=== PATIENT | male | born 1935 | race Asian ===

== ENCOUNTER 2018-01-08 21:48 | Inpatient (IN) | payer MEDICARE, MEDICAID ==
[~2018-01-08] VITALS: Ht 160 cm; Wt 51.7 kg
[~2018-01-08 21:48] MED LIST: ALLO100T30 PO; ASPI-515 PO; ATOR20TA9 PO; DOCU-131 PO; HYDR500C3 PO; LOSA25TA2 PO; METO25TA35 PO; OXYC-302 PO; POLY17PO3 PO; SEVE800T8 PO
[2018-01-08] MEDS ORDERED: MORPHINE SULFATE 4 MG/ML, 1ML IVPush PRN (23:00)
[2018-01-08] MEDS ORDERED: CLINDAMYCIN PMX 600MG/50ML 50 ML IV ONE (23:00)
[2018-01-08] MEDS ORDERED: MORPHINE SULFATE 4 MG/ML, 1ML ONE (23:14)
[2018-01-08] MEDS ORDERED: CLINDAMYCIN PMX 600MG/50ML 50 ML ONE (23:15)
[2018-01-08 23:24] LABS: MEAN CORPUSCULAR HEMOGLOBIN 38.9 pg (27.5-34.5); MEAN CORPUSCULAR HGB CONC 33.1 g/dL (33.2-36.2); MEAN CORPUSCULAR VOLUME 117.5 fL (81-97); MEAN PLATELET VOLUME 7.2 fL (7.4-10.4); PLATELET COUNT 887 x10^3/uL (130-400); RED BLOOD COUNT 2.13 x10^6/uL (4.38-5.82)
[2018-01-08 23:28] LABS: HCT (SEDRATE) 25.1 % (39.2-51.8)
[2018-01-08 23:33] LABS: ALANINE AMINOTRANSFERASE 11 U/L (12-78); ALBUMIN 2.4 g/dL (3.4-5.0); ANION GAP 1 mmol/L (5-15); CALCIUM 8.5 mg/dL (8.5-10.1); CHLORIDE 101 mmol/L (98-107)
[2018-01-08 23:35] LABS: ALKALINE PHOSPHATASE 107 U/L (45-117); BILIRUBIN,TOTAL 0.4 mg/dL (0.2-1.0); TOTAL PROTEIN 7.3 g/dL (6.4-8.2)
[2018-01-09 00:29] LABS: BASOPHILS % (AUTO) 1 % (0-1); EOSINOPHILS # (AUTO) 0.23 x10^3/uL (0-0.4); EOSINOPHILS % (AUTO) 2 % (1-7); LYMPHOCYTES # (AUTO) 1.07 x10^3/uL (1-3.4); LYMPHOCYTES % (AUTO) 8 % (22-44); MD SCAN; MONOCYTES # (AUTO) 1.04 x10^3/uL (0.2-0.8); MONOCYTES % (AUTO) 8 % (2-9); NEUTROPHILS # (AUTO) 10.56 x10^3/uL (1.8-6.8); NEUTROPHILS % (AUTO) 81 % (42-75)
[2018-01-09] MEDS ORDERED: HYDR-3240 PO (00:39)
[2018-01-09] MEDS ORDERED: SULF1TAB24 PO (00:39)
[2018-01-09] MEDS ORDERED: GABA-826 PO (00:39)
[2018-01-09] MEDS ORDERED: LEVO100T5 PO (00:39)
[2018-01-09] MEDS ORDERED: PHARMACOKINETIC CONSULTATION MC ONE (04:30)
[2018-01-09] MEDS ORDERED: VANCOMYCIN PER PHARMACY MC PRN (04:30)
[2018-01-09] MEDS ORDERED: BISACODYL 10 MG SUPP PR PRN (04:30)
[2018-01-09] MEDS ORDERED: ONDANSETRON ODT 4 MG PO PRN (04:30)
[2018-01-09] MEDS ORDERED: hydrALAzine 20 MG/ML, 1ML IVPush PRN (04:30)
[2018-01-09] MEDS ORDERED: PHARMACOKINETIC MONITORING MC PRN (04:30)
[2018-01-09] MEDS ORDERED: VANCOMYCIN PMX 1GM/200ML 200 ML IV ONE (04:30)
[2018-01-09] MEDS ORDERED: OXYcodone/APAP 5/325MG TABLET PO PRN (04:30)
[2018-01-09] MEDS: HEPARIN 5,000 UNITS/ML, 1ML SQ SCH ×3 (05:21→20:46)
[2018-01-09] MEDS: LEVOTHYROXINE 100 MCG TABLET PO SCH (05:22)
[2018-01-09 07:17] VITALS: BP 119/51
[2018-01-09] MEDS: HYDROcodone/APAP 5/325 TABLET PO SCH ×2 (08:31→20:46)
[2018-01-09] MEDS: ALLOPURINOL 100 MG TABLET PO SCH (08:31)
[2018-01-09] MEDS: GABAPENTIN 100 MG CAPSULE PO SCH (08:31)
[2018-01-09] MEDS: ASPIRIN 81 MG TABLET EC PO SCH (08:31)
[2018-01-09] MEDS: DOCUSATE 100 MG CAPSULE PO SCH ×2 (08:31→20:46)
[2018-01-09] MEDS: HYDROXYUREA 500 MG CAPSULE PO SCH (08:32)
[2018-01-09] MEDS: SEVELAMER CARBONATE 800MG TAB PO SCH ×4 (08:36→20:46)
[2018-01-09] MEDS ORDERED: GABAPENTIN 100 MG CAPSULE PO SCH (09:00)
[2018-01-09] MEDS ORDERED: METOPROLOL TARTRATE 25 MG TABLET PO SCH (09:00)
[2018-01-09] MEDS: LOSARTAN 25MG TABLET PO SCH (09:00)
[2018-01-09] MEDS ORDERED: PIPERACILLIN/TAZO 0.75 GM in SODIUM CHLORIDE 0.9% 50 ML IV SCH (09:00)
[2018-01-09] MEDS: PIPERACILLIN/TAZO 2.25 GM in SODIUM CHLORIDE 0.9% 50 ML IV SCH ×2 (10:00→20:46)
[2018-01-09 12:58] VITALS: BP 125/80
[2018-01-09 17:53] VITALS: BP 118/64
[2018-01-09] MEDS: CARVEDILOL 6.25 MG TABLET PO SCH (17:54)
[2018-01-09 20:10] VITALS: BP 114/68
[2018-01-09] MEDS: ATORVASTATIN 20 MG TABLET PO SCH (20:46)
[2018-01-10 03:50] VITALS: BP 126/59
[2018-01-10] MEDS: HEPARIN 5,000 UNITS/ML, 1ML SQ SCH ×3 (04:16→20:30)
[2018-01-10 05:39] LABS: MEAN CORPUSCULAR HEMOGLOBIN 38.3 pg (27.5-34.5); MEAN CORPUSCULAR HGB CONC 32.5 g/dL (33.2-36.2); MEAN CORPUSCULAR VOLUME 117.7 fL (81-97); MEAN PLATELET VOLUME 7.3 fL (7.4-10.4); PLATELET COUNT 731 x10^3/uL (130-400); RED BLOOD COUNT 1.82 x10^6/uL (4.38-5.82); RED CELL DISTRIBUTION WIDTH 16.8 % (9.4-14.8)
[2018-01-10] MEDS: CARVEDILOL 6.25 MG TABLET PO SCH ×2 (05:39→22:10)
[2018-01-10] MEDS: LEVOTHYROXINE 100 MCG TABLET PO SCH (05:39)
[2018-01-10 05:51] LABS: ALBUMIN 2.1 g/dL (3.4-5.0); ANION GAP 7 mmol/L (5-15); CALCIUM 8.1 mg/dL (8.5-10.1); CHLORIDE 99 mmol/L (98-107)
[2018-01-10 06:00] LABS: BASOPHILS # (AUTO) 0.04 x10^3/uL (0-0.1); BASOPHILS % (AUTO) 0 % (0-1); EOSINOPHILS # (AUTO) 0.46 x10^3/uL (0-0.4); EOSINOPHILS % (AUTO) 4 % (1-7); LYMPHOCYTES # (AUTO) 0.99 x10^3/uL (1-3.4); LYMPHOCYTES % (AUTO) 8 % (22-44); MD SCAN; MONOCYTES # (AUTO) 0.98 x10^3/uL (0.2-0.8); MONOCYTES % (AUTO) 8 % (2-9); NEUTROPHILS # (AUTO) 9.39 x10^3/uL (1.8-6.8); NEUTROPHILS % (AUTO) 79 % (42-75)
[2018-01-10 06:08] LABS: INTERNATIONAL NORMALIZED RATIO 1.14 (0.93-1.1); PROTHROMBIN TIME 11.8 Seconds (9.6-11.5)
[2018-01-10 06:54] LABS: % IRON SATURATION 20 % (20-55); ALANINE AMINOTRANSFERASE 10 U/L (12-78); ALKALINE PHOSPHATASE 85 U/L (45-117); BILIRUBIN,TOTAL 0.3 mg/dL (0.2-1.0); IRON LEVEL 31 mcg/dL (65-175); TOTAL IRON BINDING CAPACITY 152 mcg/dL (250-450); TOTAL PROTEIN 6.1 g/dL (6.4-8.2)
[2018-01-10 07:13] LABS: VANCOMYCIN,RANDOM 17.5 mcg/mL
[2018-01-10 07:23] VITALS: BP 133/53
[2018-01-10] MEDS: SEVELAMER CARBONATE 800MG TAB PO SCH (09:00)
[2018-01-10] MEDS: PIPERACILLIN/TAZO/PMX 2.25GM 50 ML IV SCH ×2 (09:00→22:11)
[2018-01-10] MEDS: ASPIRIN 81 MG TABLET EC PO SCH (09:05)
[2018-01-10] MEDS: GABAPENTIN 100 MG CAPSULE PO SCH (09:05)
[2018-01-10] MEDS: ALLOPURINOL 100 MG TABLET PO SCH (09:05)
[2018-01-10] MEDS: HYDROcodone/APAP 5/325 TABLET PO SCH ×3 (09:06→22:10)
[2018-01-10] MEDS: DOCUSATE 100 MG CAPSULE PO SCH ×3 (09:06→22:11)
[2018-01-10] MEDS: LOSARTAN 25MG TABLET PO SCH (09:06)
[2018-01-10] MEDS: HYDROXYUREA 500 MG CAPSULE PO SCH (09:09)
[2018-01-10] MEDS ORDERED: ARANESP 40 MCG/ML **ESRD SQ SCH (09:30)
[2018-01-10] MEDS: VANCOMYCIN PMX 1GM/200ML 200 ML IVPB SCH (12:39)
[2018-01-10 12:52] VITALS: BP 134/56
[2018-01-10] MEDS ORDERED: FENTANYL PF 250 MCG/5ML ONE (15:25)
[2018-01-10] MEDS ORDERED: ONDANSETRON 2MG/ML, 2ML ONE (15:51)
[2018-01-10] MEDS ORDERED: DEXAMETHASONE 4 MG/ML, 5ML ONE (15:51)
[2018-01-10] MEDS ORDERED: CEFAZOLIN 1,000 MG ONE (15:51)
[2018-01-10] MEDS ORDERED: EPHEDRINE 50 MG/ML, 1ML IVPush PRN (16:30)
[2018-01-10] MEDS ORDERED: OXYcodone 5 MG/5 ML ORAL.SOL UDC PO PRN (16:30)
[2018-01-10] MEDS ORDERED: LABETALOL 5MG/ML, 20ML IV PRN (16:30)
[2018-01-10] MEDS ORDERED: MEPERIDINE/PF 25MG/0.5ML IVPush PRN (16:30)
[2018-01-10] MEDS ORDERED: hydrALAzine 20 MG/ML, 1ML IV PRN (16:30)
[2018-01-10] MEDS ORDERED: PROMETHAZINE 25 MG/ML, 1ML IV PRN (16:30)
[2018-01-10] MEDS ORDERED: ONDANSETRON ODT 8 MG PO PRN (16:30)
[2018-01-10] MEDS ORDERED: ONDANSETRON 2MG/ML, 2ML IV PRN (16:30)
[2018-01-10] MEDS ORDERED: MIDAZOLAM 1 MG/ML, 2ML IV PRN (16:30)
[2018-01-10] MEDS ORDERED: MORPHINE SULFATE 4 MG/ML, 1ML IVPush PRN (16:30)
[2018-01-10] MEDS ORDERED: LORazepam 2 MG/ML, 1ML IVPush PRN (16:30)
[2018-01-10] MEDS ORDERED: HYDROmorphone 1 MG/ML, 1ML IV PRN (16:30)
[2018-01-10] MEDS ORDERED: ACETAMINOPHEN 325 MG TABLET PO PRN (16:30)
[2018-01-10] MEDS ORDERED: PROMETHAZINE 12.5 MG SUPP PR PRN (16:30)
[2018-01-10] MEDS ORDERED: ALBUTEROL SULFATE 2.5 MG/3 ML NPPB PRN (16:30)
[2018-01-10] MEDS ORDERED: NALOXONE 0.4 MG/ML, 1ML ONE (16:31)
[2018-01-10] MEDS ORDERED: PROPOFOL 10 MG/ML, 20ML ONE (16:33)
[2018-01-10] MEDS ORDERED: FENTANYL PF 100 MCG/2ML ONE (16:58)
[2018-01-10] MEDS ORDERED: OXYcodone 5 MG/5 ML ORAL.SOL UDC ONE (16:58)
[2018-01-10] MEDS: FENTANYL PF 100 MCG/2ML IV PRN ×4 (17:06→17:55)
[2018-01-10 20:38] VITALS: BP 146/63
[2018-01-10] MEDS: ATORVASTATIN 20 MG TABLET PO SCH ×2 (21:00→22:11)
[2018-01-10] MEDS: SULFAMETH./TRIMETHOPRIM DS 800MG/160MG TABLET PO SCH (22:10)
[2018-01-10] MEDS: POLYETHYLENE GLYCOL 17 GM PACKET PO SCH (22:11)
[2018-01-11] VITALS: BP 171/72
[2018-01-11 03:42] VITALS: BP 160/49
[2018-01-11] MEDS: HEPARIN 5,000 UNITS/ML, 1ML SQ SCH ×4 (03:53→21:08)
[2018-01-11 05:49] LABS: MEAN CORPUSCULAR HEMOGLOBIN 37.3 pg (27.5-34.5); MEAN CORPUSCULAR HGB CONC 33.7 g/dL (33.2-36.2); MEAN CORPUSCULAR VOLUME 110.6 fL (81-97); MEAN PLATELET VOLUME 7.6 fL (7.4-10.4); PLATELET COUNT 725 x10^3/uL (130-400); RED BLOOD COUNT 2.62 x10^6/uL (4.38-5.82); RED CELL DISTRIBUTION WIDTH 24.3 % (9.4-14.8)
[2018-01-11 05:53] LABS: CHLORIDE 101 mmol/L (98-107)
[2018-01-11] MEDS: CARVEDILOL 6.25 MG TABLET PO SCH ×2 (05:55→19:22)
[2018-01-11] MEDS: LEVOTHYROXINE 100 MCG TABLET PO SCH (05:55)
[2018-01-11] MEDS ORDERED: METOPROLOL TARTRATE 25 MG TABLET PO SCH (06:00)
[2018-01-11] MEDS ORDERED: LEVOTHYROXINE 100 MCG TABLET PO SCH (06:00)
[2018-01-11 06:01] LABS: ALANINE AMINOTRANSFERASE 8 U/L (12-78); ALBUMIN 2.3 g/dL (3.4-5.0); ALKALINE PHOSPHATASE 109 U/L (45-117); ANION GAP 10 mmol/L (5-15); BILIRUBIN,TOTAL 0.5 mg/dL (0.2-1.0); CALCIUM 8.3 mg/dL (8.5-10.1); CREATININE 5.29 mg/dL (0.7-1.3); TOTAL PROTEIN 7.2 g/dL (6.4-8.2)
[2018-01-11 06:46] LABS: BASOPHILS % (AUTO) 0 % (0-1); EOSINOPHILS % (AUTO) 0 % (1-7); LYMPHOCYTES % (AUTO) 4 % (22-44); MD SCAN; MONOCYTES # (AUTO) 0.28 x10^3/uL (0.2-0.8); MONOCYTES % (AUTO) 2 % (2-9); NEUTROPHILS # (AUTO) 14.12 x10^3/uL (1.8-6.8); NEUTROPHILS % (AUTO) 94 % (42-75)
[2018-01-11 07:03] VITALS: BP 161/62
[2018-01-11] MEDS ORDERED: SEVELAMER CARBONATE 800MG TAB PO SCH (08:00)
[2018-01-11] MEDS: PIPERACILLIN/TAZO/PMX 2.25GM 50 ML IV SCH ×3 (08:46→21:03)
[2018-01-11] MEDS: SULFAMETH./TRIMETHOPRIM DS 800MG/160MG TABLET PO SCH (08:46)
[2018-01-11] MEDS: GABAPENTIN 100 MG CAPSULE PO SCH (08:46)
[2018-01-11] MEDS: ASPIRIN 81 MG TABLET CHEW PO SCH (08:46)
[2018-01-11] MEDS: DOCUSATE 100 MG CAPSULE PO SCH ×2 (08:46→21:02)
[2018-01-11] MEDS: HYDROcodone/APAP 5/325 TABLET PO SCH ×2 (08:47→21:02)
[2018-01-11] MEDS: HYDROXYUREA 500 MG CAPSULE PO SCH (09:00)
[2018-01-11] MEDS ORDERED: ALLOPURINOL 100 MG TABLET PO SCH (09:00)
[2018-01-11] MEDS: LOSARTAN 25MG TABLET PO SCH (09:27)
[2018-01-11 12:34] VITALS: BP 169/62
[2018-01-11 19:15] VITALS: BP 143/56
[2018-01-11] MEDS: ATORVASTATIN 20 MG TABLET PO SCH (21:02)
[2018-01-11] MEDS: POLYETHYLENE GLYCOL 17 GM PACKET PO SCH (21:02)
[2018-01-12 01:41] VITALS: BP 156/59
[2018-01-12] MEDS: HEPARIN 5,000 UNITS/ML, 1ML SQ SCH ×3 (04:32→20:19)
[2018-01-12 05:26] LABS: ALBUMIN 2.1 g/dL (3.4-5.0); ANION GAP 5 mmol/L (5-15); CALCIUM 8.3 mg/dL (8.5-10.1); CHLORIDE 107 mmol/L (98-107)
[2018-01-12 05:32] LABS: ALKALINE PHOSPHATASE 91 U/L (45-117); BILIRUBIN,TOTAL 0.5 mg/dL (0.2-1.0); CREATININE 2.78 mg/dL (0.7-1.3); TOTAL PROTEIN 6.9 g/dL (6.4-8.2); VANCOMYCIN,RANDOM 21.8 mcg/mL
[2018-01-12 05:33] LABS: ALANINE AMINOTRANSFERASE < 6 U/L (12-78)
[2018-01-12] MEDS: CARVEDILOL 6.25 MG TABLET PO SCH ×3 (06:18→18:00)
[2018-01-12] MEDS: LEVOTHYROXINE 100 MCG TABLET PO SCH ×2 (06:18→06:20)
[2018-01-12 07:10] VITALS: BP 153/77
[2018-01-12] MEDS: HYDROcodone/APAP 5/325 TABLET PO SCH ×2 (08:56→20:19)
[2018-01-12] MEDS: DOCUSATE 100 MG CAPSULE PO SCH ×2 (08:56→20:19)
[2018-01-12] MEDS: LOSARTAN 25MG TABLET PO SCH (08:56)
[2018-01-12] MEDS: GABAPENTIN 100 MG CAPSULE PO SCH (08:56)
[2018-01-12] MEDS: ASPIRIN 81 MG TABLET CHEW PO SCH (08:56)
[2018-01-12] MEDS: PIPERACILLIN/TAZO/PMX 2.25GM 50 ML IV SCH ×2 (08:57→21:03)
[2018-01-12] MEDS: SULFAMETH./TRIMETHOPRIM DS 800MG/160MG TABLET PO SCH (08:58)
[2018-01-12] MEDS: HYDROXYUREA 500 MG CAPSULE PO SCH (08:59)
[2018-01-12] MEDS: VANCOMYCIN PMX 1GM/200ML 200 ML IVPB SCH (11:17)
[2018-01-12 14:00] VITALS: BP 159/65
[2018-01-12] MEDS: POLYETHYLENE GLYCOL 17 GM PACKET PO SCH (20:18)
[2018-01-12] MEDS: ATORVASTATIN 20 MG TABLET PO SCH (20:19)
[2018-01-12 20:22] VITALS: BP 151/66
[2018-01-13 04:23] VITALS: BP 145/60
[2018-01-13] MEDS: HEPARIN 5,000 UNITS/ML, 1ML SQ SCH ×3 (04:44→20:39)
[2018-01-13 05:41] LABS: MEAN CORPUSCULAR HEMOGLOBIN 36.3 pg (27.5-34.5); MEAN PLATELET VOLUME 7.6 fL (7.4-10.4); PLATELET COUNT 710 x10^3/uL (130-400); RED BLOOD COUNT 2.61 x10^6/uL (4.38-5.82); RED CELL DISTRIBUTION WIDTH 23.3 % (9.4-14.8)
[2018-01-13 05:51] LABS: ALBUMIN 2.1 g/dL (3.4-5.0); ANION GAP 9 mmol/L (5-15); CALCIUM 8.3 mg/dL (8.5-10.1); CHLORIDE 107 mmol/L (98-107)
[2018-01-13] MEDS: CARVEDILOL 6.25 MG TABLET PO SCH ×2 (05:51→18:27)
[2018-01-13] MEDS: LEVOTHYROXINE 100 MCG TABLET PO SCH (05:51)
[2018-01-13 05:55] LABS: CREATININE 4.23 mg/dL (0.7-1.3); VANCOMYCIN,RANDOM 35.7 mcg/mL
[2018-01-13 06:14] LABS: BASOPHILS # (AUTO) 0.05 x10^3/uL (0-0.1); BASOPHILS % (AUTO) 0 % (0-1); EOSINOPHILS # (AUTO) 0.29 x10^3/uL (0-0.4); EOSINOPHILS % (AUTO) 2 % (1-7); LYMPHOCYTES # (AUTO) 0.84 x10^3/uL (1-3.4); LYMPHOCYTES % (AUTO) 6 % (22-44); MD SCAN; MONOCYTES # (AUTO) 1.09 x10^3/uL (0.2-0.8); MONOCYTES % (AUTO) 7 % (2-9); NEUTROPHILS # (AUTO) 12.73 x10^3/uL (1.8-6.8); NEUTROPHILS % (AUTO) 85 % (42-75)
[2018-01-13 07:11] VITALS: BP 139/52
[2018-01-13] MEDS: PIPERACILLIN/TAZO/PMX 2.25GM 50 ML IV SCH ×2 (12:32→20:42)
[2018-01-13] MEDS: GABAPENTIN 100 MG CAPSULE PO SCH (12:32)
[2018-01-13] MEDS: DOCUSATE 100 MG CAPSULE PO SCH ×2 (12:32→20:39)
[2018-01-13] MEDS: HYDROcodone/APAP 5/325 TABLET PO SCH ×2 (12:32→20:39)
[2018-01-13] MEDS: ASPIRIN 81 MG TABLET CHEW PO SCH (12:32)
[2018-01-13] MEDS: LOSARTAN 25MG TABLET PO SCH (12:32)
[2018-01-13] MEDS: SULFAMETH./TRIMETHOPRIM DS 800MG/160MG TABLET PO SCH (12:32)
[2018-01-13] MEDS: HYDROXYUREA 500 MG CAPSULE PO SCH (12:33)
[2018-01-13 12:49] VITALS: BP 134/49
[2018-01-13 17:40] VITALS: BP 119/63
[2018-01-13 19:34] VITALS: BP 120/56
[2018-01-13] MEDS: POLYETHYLENE GLYCOL 17 GM PACKET PO SCH (20:39)
[2018-01-13] MEDS: ATORVASTATIN 20 MG TABLET PO SCH (20:39)
[2018-01-14 02:20] VITALS: BP 135/55
[2018-01-14] MEDS: HEPARIN 5,000 UNITS/ML, 1ML SQ SCH ×4 (04:30→20:36)
[2018-01-14] MEDS: LEVOTHYROXINE 100 MCG TABLET PO SCH ×2 (04:52→05:00)
[2018-01-14] MEDS: CARVEDILOL 6.25 MG TABLET PO SCH ×3 (04:52→17:23)
[2018-01-14] MEDS: HYDROcodone/APAP 5/325 TABLET PO SCH ×2 (09:09→20:36)
[2018-01-14] MEDS: ASPIRIN 81 MG TABLET CHEW PO SCH (09:09)
[2018-01-14] MEDS: PIPERACILLIN/TAZO/PMX 2.25GM 50 ML IV SCH ×2 (09:09→20:35)
[2018-01-14] MEDS: LOSARTAN 25MG TABLET PO SCH (09:09)
[2018-01-14] MEDS: HYDROXYUREA 500 MG CAPSULE PO SCH (09:10)
[2018-01-14] MEDS: GABAPENTIN 100 MG CAPSULE PO SCH (09:10)
[2018-01-14 09:26] VITALS: BP 144/71
[2018-01-14] MEDS: DOCUSATE 100 MG CAPSULE PO SCH ×2 (09:28→20:36)
[2018-01-14] MEDS: SULFAMETH./TRIMETHOPRIM DS 800MG/160MG TABLET PO SCH (11:41)
[2018-01-14] MEDS: OXYcodone/APAP 5/325MG TABLET PO PRN (11:52)
[2018-01-14 14:00] VITALS: BP 104/59
[2018-01-14 17:20] VITALS: BP 139/60
[2018-01-14 20:10] VITALS: BP 132/52
[2018-01-14] MEDS: POLYETHYLENE GLYCOL 17 GM PACKET PO SCH (20:36)
[2018-01-14] MEDS: ATORVASTATIN 20 MG TABLET PO SCH (20:36)
[2018-01-15 02:14] VITALS: BP 143/61
[2018-01-15] MEDS: HEPARIN 5,000 UNITS/ML, 1ML SQ SCH ×2 (04:52→12:51)
[2018-01-15] MEDS: LEVOTHYROXINE 100 MCG TABLET PO SCH (04:52)
[2018-01-15] MEDS: CARVEDILOL 6.25 MG TABLET PO SCH (04:53)
[2018-01-15 05:01] LABS: MEAN CORPUSCULAR HEMOGLOBIN 36.6 pg (27.5-34.5); MEAN CORPUSCULAR HGB CONC 33.1 g/dL (33.2-36.2); MEAN CORPUSCULAR VOLUME 110.4 fL (81-97); MEAN PLATELET VOLUME 7.5 fL (7.4-10.4); PLATELET COUNT 719 x10^3/uL (130-400); RED BLOOD COUNT 2.62 x10^6/uL (4.38-5.82); RED CELL DISTRIBUTION WIDTH 22.8 % (9.4-14.8)
[2018-01-15 05:05] LABS: ALBUMIN 2.1 g/dL (3.4-5.0); ANION GAP 9 mmol/L (5-15); CALCIUM 8.3 mg/dL (8.5-10.1); CHLORIDE 109 mmol/L (98-107); CREATININE 4.34 mg/dL (0.7-1.3)
[2018-01-15 05:07] LABS: VANCOMYCIN,RANDOM 27.3 mcg/mL
[2018-01-15 05:44] LABS: MD YES
[2018-01-15 05:46] LABS: BASOS#(MANUAL) 0.12 x10^3/uL (0-0.1); BASOS% (MANUAL) 1 % (0-1); EOS#(MANUAL) 0.23 x10^3/uL (0.0-0.4); EOS% (MANUAL) 2 % (1-7); LYMPH#(MANUAL) 0.93 x10^3/uL (1-3.4); LYMPHS% (MANUAL) 8 % (22-44); MONOS#(MANUAL) 0.93 x10^3/uL (0.3-2.7); MONOS% (MANUAL) 8 % (2-9); NRBC % (MANUAL) 1 % (0-1); SEGS% (MANUAL) 81 % (42-75)
[2018-01-15 05:47] LABS: POLYCHROMASIA 1+
[2018-01-15 05:48] LABS: <PLATELET ESTIMATE> INCREASED; <PLT MORPHOLOGY> NORMAL PLT MORPH
[2018-01-15] MEDS: HYDROcodone/APAP 5/325 TABLET PO SCH (07:23)
[2018-01-15 07:30] VITALS: BP 162/69
[2018-01-15] MEDS: DOCUSATE 100 MG CAPSULE PO SCH (09:00)
[2018-01-15] MEDS ORDERED: CEPH-368 PO (10:17)
[2018-01-15] MEDS ORDERED: CARV6.2512 PO (10:17)
[2018-01-15] MEDS ORDERED: ACET-1600 PO (10:29)
[2018-01-15] MEDS: PIPERACILLIN/TAZO/PMX 2.25GM 50 ML IV SCH (12:46)
[2018-01-15] MEDS: GABAPENTIN 100 MG CAPSULE PO SCH (12:47)
[2018-01-15] MEDS: SULFAMETH./TRIMETHOPRIM DS 800MG/160MG TABLET PO SCH (12:47)
[2018-01-15] MEDS: ASPIRIN 81 MG TABLET CHEW PO SCH (12:48)
[2018-01-15] MEDS: LOSARTAN 25MG TABLET PO SCH (12:49)
[2018-01-15] MEDS: HYDROXYUREA 500 MG CAPSULE PO SCH (12:50)
[2018-01-15 12:58] VITALS: BP 143/57
[2018-01-15] MEDS: OXYcodone/APAP 5/325MG TABLET PO PRN (13:07)
== END 2018-01-15 16:37 | DRG 474 ==
LOC: ED 22:22 → EDIP 01-09 00:44 → 4NOR 01-09 02:10
PROVIDERS: ADMIT Family Medicine; ATTEND Family Medicine
PROC: 30233N1 Transfusion of Nonautologous Red Blood Cells into Peripheral Vein, Percutaneous Approach (ICD-10-PCS; 2018-01-10)
PROC: 0Y6D0Z3 Detachment at Left Upper Leg, Low, Open Approach (ICD-10-PCS; principal; 2018-01-10 14:30)
PROC: 5A1D70Z Performance of Urinary Filtration, Intermittent, Less than 6 Hours Per Day (ICD-10-PCS; 2018-01-11)
PROC: 5A1D70Z Performance of Urinary Filtration, Intermittent, Less than 6 Hours Per Day (ICD-10-PCS; 2018-01-13)
PROC: 5A1D70Z Performance of Urinary Filtration, Intermittent, Less than 6 Hours Per Day (ICD-10-PCS; 2018-01-15)
DX: T87.54 Necrosis of amputation stump, left lower extremity (principal); N18.6 End stage renal disease; E11.52 Type 2 diabetes mellitus with diabetic peripheral angiopathy with gangrene; E46 Unspecified protein-calorie malnutrition; J81.1 Chronic pulmonary edema; J90 Pleural effusion, not elsewhere classified; L03.116 Cellulitis of left lower limb; I12.0 Hypertensive chronic kidney disease with stage 5 chronic kidney disease or end stage renal disease; D63.1 Anemia in chronic kidney disease; E03.9 Hypothyroidism, unspecified; E11.22 Type 2 diabetes mellitus with diabetic chronic kidney disease; E11.65 Type 2 diabetes mellitus with hyperglycemia; E78.5 Hyperlipidemia, unspecified; E87.6 Hypokalemia; E87.70 Fluid overload, unspecified; M1A.9XX0 Chronic gout, unspecified, without tophus (tophi); N25.0 Renal osteodystrophy; Z60.2 Problems related to living alone; R79.89 Other specified abnormal findings of blood chemistry; Y83.5 Amputation of limb(s) as the cause of abnormal reaction of the patient, or of later complication, without mention of misadventure at the time of the procedure; Z99.2 Dependence on renal dialysis; Z82.49 Family history of ischemic heart disease and other diseases of the circulatory system; Z83.3 Family history of diabetes mellitus; Z68.20 Body mass index [BMI] 20.0-20.9, adult; Z86.73 Personal history of transient ischemic attack (TIA), and cerebral infarction without residual deficits; Z87.891 Personal history of nicotine dependence; Z95.828 Presence of other vascular implants and grafts; Y92.89 Other specified places as the place of occurrence of the external cause; Z79.84 Long term (current) use of oral hypoglycemic drugs
CPT/HCPCS: 36415; 71045; 80053; 80069; 80202; 82306; 82728; 82962; 83540; 83550; 83605; 83735; 83970; 84100; 84550; 85025; 85610; 85651; 85730; 86705; 86706; 86850; 86900; 86923; 87040; 87340; 93005; 96365; 96375; G0378; J0690; J0882; J1100; J1644; J2310; J2405; J2543; J2704; J3010; J3370; P9016

== ENCOUNTER 2018-03-17 10:55 | Inpatient (IN) | payer MEDICARE, MEDICAID ==
[~2018-03-17] VITALS: Ht 167.6 cm; Wt 42.6 kg
[~2018-03-17 10:55] MED LIST changes: +ACET-1600 PO; +CARV6.2512 PO; +CEPH-368 PO; +GABA-826 PO; +HYDR-3240 PO; +LEVO100T5 PO; +SULF1TAB24 PO
[2018-03-17] MEDS ORDERED: MUPI1OIN6 TD (11:09)
[2018-03-17] MEDS ORDERED: SODIUM CHLORIDE FLUSH 10ML SYR IVF ONE (12:00)
[2018-03-17 12:24] LABS: BASOPHILS # (AUTO) 0.02 x10^3/uL (0-0.1); BASOPHILS % (AUTO) 0 % (0-1); EOSINOPHILS # (AUTO) 0.05 x10^3/uL (0-0.4); EOSINOPHILS % (AUTO) 0 % (1-7); LYMPHOCYTES % (AUTO) 10 % (22-44); MD NO; MEAN CORPUSCULAR HEMOGLOBIN 34.9 pg (27.5-34.5); MEAN CORPUSCULAR HGB CONC 32.1 g/dL (33.2-36.2); MEAN CORPUSCULAR VOLUME 108.7 fL (81-97); MEAN PLATELET VOLUME 7.2 fL (7.4-10.4); MONOCYTES # (AUTO) 0.62 x10^3/uL (0.2-0.8); MONOCYTES % (AUTO) 6 % (2-9); NEUTROPHILS # (AUTO) 9.34 x10^3/uL (1.8-6.8); NEUTROPHILS % (AUTO) 84 % (42-75); PLATELET COUNT 576 x10^3/uL (130-400); RED BLOOD COUNT 3.42 x10^6/uL (4.38-5.82); RED CELL DISTRIBUTION WIDTH 20.6 % (9.4-14.8)
[2018-03-17 12:34] LABS: ALBUMIN 2.5 g/dL (3.4-5.0); ANION GAP 10 mmol/L (5-15); CALCIUM 9.2 mg/dL (8.5-10.1); CHLORIDE 99 mmol/L (98-107)
[2018-03-17 12:40] LABS: ALANINE AMINOTRANSFERASE 12 U/L (12-78); ALKALINE PHOSPHATASE 93 U/L (45-117); BILIRUBIN,TOTAL 0.4 mg/dL (0.2-1.0); CREATININE 5.21 mg/dL (0.7-1.3); TOTAL PROTEIN 7.5 g/dL (6.4-8.2); TROPONIN I 0.029 ng/mL (0.000-0.045)
[2018-03-17] MEDS ORDERED: LABETALOL 5MG/ML, 20ML IVPush PRN (14:00)
[2018-03-17] MEDS ORDERED: LIDODERM 5% PATCH TD PRN (14:00)
[2018-03-17] MEDS ORDERED: BISACODYL 10 MG SUPP PR PRN (14:00)
[2018-03-17] MEDS ORDERED: ONDANSETRON 2MG/ML, 2ML IVPush PRN (14:00)
[2018-03-17] MEDS ORDERED: SODIUM CHLORIDE FLUSH 10ML SYR IVF PRN (14:00)
[2018-03-17] MEDS ORDERED: DOCUSATE 100 MG CAPSULE PO PRN (14:00)
[2018-03-17] MEDS ORDERED: ONDANSETRON ODT 4 MG PO PRN (14:00)
[2018-03-17] MEDS ORDERED: POLYETHYLENE GLYCOL 17 GM PACKET PO PRN (15:00)
[2018-03-17] MEDS: CARVEDILOL 6.25 MG TABLET PO SCH ×2 (17:45→21:05)
[2018-03-17 20:40] VITALS: BP 120/51
[2018-03-17] MEDS: MUPIROCIN OINT 2%, 22GM TP SCH (21:00)
[2018-03-17] MEDS: ATORVASTATIN 20 MG TABLET PO SCH (21:05)
[2018-03-17] MEDS: DOCUSATE 100 MG CAPSULE PO SCH (21:05)
[2018-03-18 02:30] VITALS: BP 115/54
[2018-03-18 05:27] LABS: BASOPHILS # (AUTO) 0.03 x10^3/uL (0-0.1); BASOPHILS % (AUTO) 0 % (0-1); EOSINOPHILS # (AUTO) 0.05 x10^3/uL (0-0.4); EOSINOPHILS % (AUTO) 1 % (1-7); LYMPHOCYTES # (AUTO) 1.11 x10^3/uL (1-3.4); LYMPHOCYTES % (AUTO) 11 % (22-44); MD NO; MEAN CORPUSCULAR HEMOGLOBIN 34.4 pg (27.5-34.5); MEAN CORPUSCULAR HGB CONC 31.6 g/dL (33.2-36.2); MEAN CORPUSCULAR VOLUME 108.7 fL (81-97); MEAN PLATELET VOLUME 7.1 fL (7.4-10.4); MONOCYTES # (AUTO) 0.68 x10^3/uL (0.2-0.8); MONOCYTES % (AUTO) 7 % (2-9); NEUTROPHILS # (AUTO) 8.44 x10^3/uL (1.8-6.8); NEUTROPHILS % (AUTO) 82 % (42-75); PLATELET COUNT 656 x10^3/uL (130-400)
[2018-03-18 05:39] LABS: CHLORIDE 96 mmol/L (98-107)
[2018-03-18] MEDS: LEVOTHYROXINE 100 MCG TABLET PO SCH (05:59)
[2018-03-18] MEDS: MUPIROCIN OINT 2%, 22GM TP SCH ×2 (06:00→18:00)
[2018-03-18 06:22] LABS: ANION GAP 6 mmol/L (5-15); CREATININE 2.93 mg/dL (0.7-1.3); THYROID STIMULATING HORMONE 0.358 mIU/L (0.358-3.740)
[2018-03-18 07:18] VITALS: BP 125/54
[2018-03-18] MEDS ORDERED: GABAPENTIN 100 MG CAPSULE ONE (08:46)
[2018-03-18] MEDS: SENNA/DOCUSATE TABLET PO SCH (08:47)
[2018-03-18] MEDS: LOSARTAN 25MG TABLET PO SCH (08:55)
[2018-03-18] MEDS: ASPIRIN 81 MG TABLET EC PO SCH (08:55)
[2018-03-18] MEDS: DOCUSATE 100 MG CAPSULE PO SCH ×2 (08:55→20:33)
[2018-03-18] MEDS: GABAPENTIN 100 MG CAPSULE PO SCH (08:55)
[2018-03-18] MEDS: ALLOPURINOL 100 MG TABLET PO SCH (08:55)
[2018-03-18] MEDS: HYDROXYUREA 500 MG CAPSULE PO SCH (08:56)
[2018-03-18] MEDS ORDERED: GABAPENTIN 100 MG CAPSULE PO SCH (09:00)
[2018-03-18 14:05] VITALS: BP 136/78
[2018-03-18] MEDS: CARVEDILOL 6.25 MG TABLET PO SCH (17:58)
[2018-03-18 18:29] VITALS: BP 131/59
[2018-03-18] MEDS: ATORVASTATIN 20 MG TABLET PO SCH (20:33)
[2018-03-19 02:45] VITALS: BP 130/61
[2018-03-19 05:48] LABS: BASOPHILS # (AUTO) 0.05 x10^3/uL (0-0.1); BASOPHILS % (AUTO) 0 % (0-1); EOSINOPHILS # (AUTO) 0.08 x10^3/uL (0-0.4); EOSINOPHILS % (AUTO) 1 % (1-7); LYMPHOCYTES # (AUTO) 1.51 x10^3/uL (1-3.4); LYMPHOCYTES % (AUTO) 10 % (22-44); MD NO; MEAN CORPUSCULAR HGB CONC 32.2 g/dL (33.2-36.2); MEAN CORPUSCULAR VOLUME 108.7 fL (81-97); MEAN PLATELET VOLUME 7.2 fL (7.4-10.4); MONOCYTES # (AUTO) 1.05 x10^3/uL (0.2-0.8); MONOCYTES % (AUTO) 7 % (2-9); NEUTROPHILS # (AUTO) 12.12 x10^3/uL (1.8-6.8); NEUTROPHILS % (AUTO) 82 % (42-75); PLATELET COUNT 666 x10^3/uL (130-400); RED BLOOD COUNT 3.65 x10^6/uL (4.38-5.82); RED CELL DISTRIBUTION WIDTH 20.1 % (9.4-14.8)
[2018-03-19] MEDS: MUPIROCIN OINT 2%, 22GM TP SCH ×2 (05:57→17:59)
[2018-03-19 05:58] LABS: ALBUMIN 2.4 g/dL (3.4-5.0); ANION GAP 11 mmol/L (5-15); CALCIUM 8.9 mg/dL (8.5-10.1); CHLORIDE 96 mmol/L (98-107)
[2018-03-19] MEDS: CARVEDILOL 6.25 MG TABLET PO SCH (05:59)
[2018-03-19] MEDS: LEVOTHYROXINE 100 MCG TABLET PO SCH (05:59)
[2018-03-19 06:02] LABS: CREATININE 4.21 mg/dL (0.7-1.3)
[2018-03-19 06:52] VITALS: BP 145/71
[2018-03-19] MEDS: SENNA/DOCUSATE TABLET PO SCH (09:00)
[2018-03-19] MEDS: ASPIRIN 81 MG TABLET EC PO SCH (09:43)
[2018-03-19] MEDS: ALLOPURINOL 100 MG TABLET PO SCH (09:43)
[2018-03-19] MEDS: DOCUSATE 100 MG CAPSULE PO SCH ×2 (09:43→22:03)
[2018-03-19] MEDS: GABAPENTIN 100 MG CAPSULE PO SCH (09:43)
[2018-03-19] MEDS: LOSARTAN 25MG TABLET PO SCH (09:43)
[2018-03-19] MEDS: HYDROXYUREA 500 MG CAPSULE PO SCH (09:44)
[2018-03-19] MEDS ORDERED: PHARMACOKINETIC MONITORING MC PRN (11:30)
[2018-03-19] MEDS ORDERED: PHARMACOKINETIC CONSULTATION MC ONE (11:30)
[2018-03-19] MEDS ORDERED: VANCOMYCIN 800 MG in SODIUM CHLORIDE 0.9% 100 ML IV ONE (11:30)
[2018-03-19] MEDS ORDERED: VANCOMYCIN PER PHARMACY MC PRN (11:30)
[2018-03-19] MEDS: CEFTRIAXONE PMX 2GM/50ML 50 ML IV SCH (12:04)
[2018-03-19 13:01] VITALS: BP 116/61
[2018-03-19 20:00] VITALS: BP 144/52
[2018-03-19] MEDS: ATORVASTATIN 20 MG TABLET PO SCH (22:03)
[2018-03-20 01:49] VITALS: BP 123/61
[2018-03-20] MEDS: MUPIROCIN OINT 2%, 22GM TP SCH ×2 (05:08→17:25)
[2018-03-20] MEDS: LEVOTHYROXINE 100 MCG TABLET PO SCH (05:10)
[2018-03-20 05:46] LABS: MEAN CORPUSCULAR HGB CONC 31.6 g/dL (33.2-36.2); MEAN CORPUSCULAR VOLUME 110.5 fL (81-97); MEAN PLATELET VOLUME 6.9 fL (7.4-10.4); PLATELET COUNT 634 x10^3/uL (130-400); RED BLOOD COUNT 3.51 x10^6/uL (4.38-5.82); RED CELL DISTRIBUTION WIDTH 20.4 % (9.4-14.8)
[2018-03-20 05:58] LABS: ALBUMIN 2.5 g/dL (3.4-5.0); ANION GAP 7 mmol/L (5-15); CALCIUM 9.1 mg/dL (8.5-10.1); CHLORIDE 104 mmol/L (98-107)
[2018-03-20 06:01] LABS: CREATININE 2.72 mg/dL (0.7-1.3); VANCOMYCIN,RANDOM 3.6 mcg/mL
[2018-03-20 06:13] LABS: BASOPHILS # (AUTO) 0.05 x10^3/uL (0-0.1); BASOPHILS % (AUTO) 0 % (0-1); EOSINOPHILS # (AUTO) 0.14 x10^3/uL (0-0.4); EOSINOPHILS % (AUTO) 1 % (1-7); LYMPHOCYTES # (AUTO) 1.58 x10^3/uL (1-3.4); LYMPHOCYTES % (AUTO) 11 % (22-44); MD SCAN; MONOCYTES # (AUTO) 1.22 x10^3/uL (0.2-0.8); MONOCYTES % (AUTO) 8 % (2-9); NEUTROPHILS # (AUTO) 11.87 x10^3/uL (1.8-6.8); NEUTROPHILS % (AUTO) 80 % (42-75)
[2018-03-20 08:13] VITALS: BP 113/57
[2018-03-20] MEDS: LOSARTAN 25MG TABLET PO SCH (08:30)
[2018-03-20] MEDS: ASPIRIN 81 MG TABLET EC PO SCH (08:30)
[2018-03-20] MEDS: ALLOPURINOL 100 MG TABLET PO SCH (08:30)
[2018-03-20] MEDS: SENNA/DOCUSATE TABLET PO SCH (08:30)
[2018-03-20] MEDS: GABAPENTIN 100 MG CAPSULE PO SCH (08:30)
[2018-03-20] MEDS: DOCUSATE 100 MG CAPSULE PO SCH ×2 (08:30→20:38)
[2018-03-20] MEDS: HYDROXYUREA 500 MG CAPSULE PO SCH (08:31)
[2018-03-20] MEDS ORDERED: VANCOMYCIN 800 MG in SODIUM CHLORIDE 0.9% 100 ML IV ONE (10:00)
[2018-03-20 13:20] VITALS: BP 146/69
[2018-03-20] MEDS: CEFTRIAXONE PMX 2GM/50ML 50 ML IV SCH (16:10)
[2018-03-20 20:00] VITALS: BP 112/74
[2018-03-20] MEDS: ATORVASTATIN 20 MG TABLET PO SCH (20:38)
[2018-03-21 01:08] VITALS: BP 146/66
[2018-03-21 04:45] LABS: MEAN CORPUSCULAR HEMOGLOBIN 34.8 pg (27.5-34.5); MEAN CORPUSCULAR HGB CONC 31.5 g/dL (33.2-36.2); MEAN CORPUSCULAR VOLUME 110.6 fL (81-97); MEAN PLATELET VOLUME 7.1 fL (7.4-10.4); PLATELET COUNT 578 x10^3/uL (130-400); RED BLOOD COUNT 3.45 x10^6/uL (4.38-5.82); RED CELL DISTRIBUTION WIDTH 19.5 % (9.4-14.8)
[2018-03-21 04:59] LABS: CHLORIDE 102 mmol/L (98-107)
[2018-03-21 05:04] LABS: ALBUMIN 2.4 g/dL (3.4-5.0); ANION GAP 12 mmol/L (5-15); CALCIUM 8.8 mg/dL (8.5-10.1); CREATININE 3.85 mg/dL (0.7-1.3); VANCOMYCIN,RANDOM 10.9 mcg/mL
[2018-03-21] MEDS: MUPIROCIN OINT 2%, 22GM TP SCH ×2 (05:04→18:29)
[2018-03-21 05:06] LABS: BASOPHILS # (AUTO) 0.04 x10^3/uL (0-0.1); BASOPHILS % (AUTO) 0 % (0-1); EOSINOPHILS # (AUTO) 0.25 x10^3/uL (0-0.4); EOSINOPHILS % (AUTO) 2 % (1-7); LYMPHOCYTES # (AUTO) 1.86 x10^3/uL (1-3.4); LYMPHOCYTES % (AUTO) 14 % (22-44); MD SCAN; MONOCYTES # (AUTO) 1.19 x10^3/uL (0.2-0.8); MONOCYTES % (AUTO) 9 % (2-9); NEUTROPHILS # (AUTO) 10.42 x10^3/uL (1.8-6.8); NEUTROPHILS % (AUTO) 76 % (42-75)
[2018-03-21] MEDS: LEVOTHYROXINE 100 MCG TABLET PO SCH (05:36)
[2018-03-21 07:08] VITALS: BP 124/67
[2018-03-21] MEDS: SENNA/DOCUSATE TABLET PO SCH (08:06)
[2018-03-21] MEDS: DOCUSATE 100 MG CAPSULE PO SCH ×2 (08:06→20:50)
[2018-03-21] MEDS: ALLOPURINOL 100 MG TABLET PO SCH (08:06)
[2018-03-21] MEDS: HYDROXYUREA 500 MG CAPSULE PO SCH (08:06)
[2018-03-21] MEDS: ASPIRIN 81 MG TABLET EC PO SCH (08:06)
[2018-03-21] MEDS: GABAPENTIN 100 MG CAPSULE PO SCH (08:06)
[2018-03-21] MEDS: LOSARTAN 25MG TABLET PO SCH (08:07)
[2018-03-21] MEDS ORDERED: VANCOMYCIN 800 MG in SODIUM CHLORIDE 0.9% 100 ML IV ONE (11:00)
[2018-03-21] MEDS: CEFTRIAXONE PMX 2GM/50ML 50 ML IV SCH (13:10)
[2018-03-21 13:26] VITALS: BP 104/44
[2018-03-21 20:00] VITALS: BP 130/55
[2018-03-21] MEDS: ATORVASTATIN 20 MG TABLET PO SCH (20:51)
[2018-03-21] MEDS: ACETAMINOPHEN 325 MG TABLET PO PRN (21:37)
[2018-03-22 01:11] VITALS: BP 144/60
[2018-03-22 04:12] LABS: ALBUMIN 2.3 g/dL (3.4-5.0); ANION GAP 13 mmol/L (5-15); CALCIUM 8.4 mg/dL (8.5-10.1); CHLORIDE 101 mmol/L (98-107); CREATININE 3.46 mg/dL (0.7-1.3)
[2018-03-22] MEDS: LEVOTHYROXINE 100 MCG TABLET PO SCH (05:30)
[2018-03-22] MEDS: MUPIROCIN OINT 2%, 22GM TP SCH ×2 (05:31→18:00)
[2018-03-22 06:40] LABS: MEAN CORPUSCULAR HEMOGLOBIN 35.3 pg (27.5-34.5); MEAN CORPUSCULAR HGB CONC 32.1 g/dL (33.2-36.2); MEAN CORPUSCULAR VOLUME 109.9 fL (81-97); MEAN PLATELET VOLUME 6.7 fL (7.4-10.4); PLATELET COUNT 571 x10^3/uL (130-400); RED BLOOD COUNT 3.33 x10^6/uL (4.38-5.82)
[2018-03-22 07:08] LABS: BASOPHILS # (AUTO) 0.06 x10^3/uL (0-0.1); BASOPHILS % (AUTO) 0 % (0-1); EOSINOPHILS # (AUTO) 0.25 x10^3/uL (0-0.4); EOSINOPHILS % (AUTO) 2 % (1-7); LYMPHOCYTES # (AUTO) 1.59 x10^3/uL (1-3.4); LYMPHOCYTES % (AUTO) 10 % (22-44); MD SCAN; MONOCYTES # (AUTO) 1.14 x10^3/uL (0.2-0.8); MONOCYTES % (AUTO) 7 % (2-9); NEUTROPHILS # (AUTO) 12.56 x10^3/uL (1.8-6.8); NEUTROPHILS % (AUTO) 81 % (42-75)
[2018-03-22 07:44] VITALS: BP 131/74
[2018-03-22] MEDS: DOCUSATE 100 MG CAPSULE PO SCH ×2 (09:47→20:27)
[2018-03-22] MEDS: ASPIRIN 81 MG TABLET EC PO SCH (09:47)
[2018-03-22] MEDS: LOSARTAN 25MG TABLET PO SCH (09:47)
[2018-03-22] MEDS: ALLOPURINOL 100 MG TABLET PO SCH (09:47)
[2018-03-22] MEDS: SENNA/DOCUSATE TABLET PO SCH (09:47)
[2018-03-22] MEDS: GABAPENTIN 100 MG CAPSULE PO SCH (09:47)
[2018-03-22] MEDS: HYDROXYUREA 500 MG CAPSULE PO SCH (10:33)
[2018-03-22 14:59] VITALS: BP 132/71
[2018-03-22] MEDS: ACETAMINOPHEN 325 MG TABLET PO PRN (16:18)
[2018-03-22 19:59] VITALS: BP 95/65
[2018-03-22] MEDS: ATORVASTATIN 20 MG TABLET PO SCH (20:27)
[2018-03-23 02:06] VITALS: BP 111/54
[2018-03-23] MEDS: LEVOTHYROXINE 100 MCG TABLET PO SCH (05:55)
[2018-03-23] MEDS: MUPIROCIN OINT 2%, 22GM TP SCH ×2 (05:56→16:59)
[2018-03-23 06:06] LABS: MEAN CORPUSCULAR HEMOGLOBIN 35.4 pg (27.5-34.5); MEAN CORPUSCULAR VOLUME 110.5 fL (81-97); MEAN PLATELET VOLUME 7.4 fL (7.4-10.4); PLATELET COUNT 666 x10^3/uL (130-400); RED BLOOD COUNT 3.17 x10^6/uL (4.38-5.82); RED CELL DISTRIBUTION WIDTH 19.4 % (9.4-14.8)
[2018-03-23 06:16] LABS: ALBUMIN 2.3 g/dL (3.4-5.0); ANION GAP 12 mmol/L (5-15); CALCIUM 8.5 mg/dL (8.5-10.1); CHLORIDE 98 mmol/L (98-107)
[2018-03-23 06:17] LABS: CREATININE 4.62 mg/dL (0.7-1.3)
[2018-03-23 06:33] LABS: BASOPHILS # (AUTO) 0.02 x10^3/uL (0-0.1); BASOPHILS % (AUTO) 0 % (0-1); EOSINOPHILS # (AUTO) 0.32 x10^3/uL (0-0.4); EOSINOPHILS % (AUTO) 3 % (1-7); LYMPHOCYTES # (AUTO) 1.34 x10^3/uL (1-3.4); LYMPHOCYTES % (AUTO) 11 % (22-44); MD SCAN; MONOCYTES # (AUTO) 0.89 x10^3/uL (0.2-0.8); MONOCYTES % (AUTO) 7 % (2-9); NEUTROPHILS % (AUTO) 79 % (42-75)
[2018-03-23 07:27] VITALS: BP 111/54
[2018-03-23] MEDS: HYDROXYUREA 500 MG CAPSULE PO SCH (08:28)
[2018-03-23] MEDS: GABAPENTIN 100 MG CAPSULE PO SCH (08:28)
[2018-03-23] MEDS: DOCUSATE 100 MG CAPSULE PO SCH ×3 (08:28→21:52)
[2018-03-23] MEDS: ASPIRIN 81 MG TABLET EC PO SCH (08:28)
[2018-03-23] MEDS: LOSARTAN 25MG TABLET PO SCH (08:28)
[2018-03-23] MEDS: ALLOPURINOL 100 MG TABLET PO SCH (08:28)
[2018-03-23] MEDS: SENNA/DOCUSATE TABLET PO SCH (08:28)
[2018-03-23] MEDS: ACETAMINOPHEN 325 MG TABLET PO PRN (10:20)
[2018-03-23 13:07] VITALS: BP 111/51
[2018-03-23 20:00] VITALS: BP 109/62
[2018-03-23] MEDS: ATORVASTATIN 20 MG TABLET PO SCH ×2 (21:00→21:52)
[2018-03-24 02:00] VITALS: BP 114/61
[2018-03-24] MEDS: MUPIROCIN OINT 2%, 22GM TP SCH ×2 (04:58→17:13)
[2018-03-24] MEDS: LEVOTHYROXINE 100 MCG TABLET PO SCH (05:56)
[2018-03-24 06:08] LABS: BASOPHILS # (AUTO) 0.07 x10^3/uL (0-0.1); BASOPHILS % (AUTO) 1 % (0-1); EOSINOPHILS # (AUTO) 0.43 x10^3/uL (0-0.4); EOSINOPHILS % (AUTO) 3 % (1-7); LYMPHOCYTES # (AUTO) 1.78 x10^3/uL (1-3.4); LYMPHOCYTES % (AUTO) 13 % (22-44); MD NO; MEAN CORPUSCULAR HEMOGLOBIN 36.1 pg (27.5-34.5); MEAN CORPUSCULAR HGB CONC 32.9 g/dL (33.2-36.2); MEAN CORPUSCULAR VOLUME 109.6 fL (81-97); MEAN PLATELET VOLUME 7.4 fL (7.4-10.4); MONOCYTES # (AUTO) 1.01 x10^3/uL (0.2-0.8); MONOCYTES % (AUTO) 7 % (2-9); NEUTROPHILS # (AUTO) 10.68 x10^3/uL (1.8-6.8); NEUTROPHILS % (AUTO) 76 % (42-75); PLATELET COUNT 623 x10^3/uL (130-400); RED BLOOD COUNT 2.92 x10^6/uL (4.38-5.82); RED CELL DISTRIBUTION WIDTH 19.5 % (9.4-14.8)
[2018-03-24 06:18] LABS: CHLORIDE 102 mmol/L (98-107)
[2018-03-24 06:24] LABS: ALANINE AMINOTRANSFERASE 21 U/L (12-78); ALBUMIN 2.4 g/dL (3.4-5.0); ALKALINE PHOSPHATASE 136 U/L (45-117); ANION GAP 12 mmol/L (5-15); BILIRUBIN,TOTAL 0.4 mg/dL (0.2-1.0); CALCIUM 9.1 mg/dL (8.5-10.1); CREATININE 6.01 mg/dL (0.7-1.3); TOTAL PROTEIN 6.7 g/dL (6.4-8.2)
[2018-03-24 07:10] VITALS: BP 104/56
[2018-03-24] MEDS: DOCUSATE 100 MG CAPSULE PO SCH ×2 (07:22→21:32)
[2018-03-24] MEDS: SENNA/DOCUSATE TABLET PO SCH (07:24)
[2018-03-24] MEDS: LOSARTAN 25MG TABLET PO SCH (08:11)
[2018-03-24] MEDS: GABAPENTIN 100 MG CAPSULE PO SCH (08:11)
[2018-03-24] MEDS: ALLOPURINOL 100 MG TABLET PO SCH (08:11)
[2018-03-24] MEDS: HYDROXYUREA 500 MG CAPSULE PO SCH (08:12)
[2018-03-24] MEDS: ASPIRIN 81 MG TABLET EC PO SCH (08:12)
[2018-03-24 13:47] VITALS: BP 136/52
[2018-03-24] MEDS: MORPHINE SULFATE 4 MG/ML, 1ML IVPush PRN ×2 (17:10→21:45)
[2018-03-24 20:00] VITALS: BP 146/68
[2018-03-24] MEDS: ATORVASTATIN 20 MG TABLET PO SCH (21:31)
[2018-03-25 02:00] VITALS: BP 131/70
[2018-03-25] MEDS: MORPHINE SULFATE 4 MG/ML, 1ML IVPush PRN ×2 (02:23→07:48)
[2018-03-25 05:36] LABS: BASOPHILS # (AUTO) 0.05 x10^3/uL (0-0.1); BASOPHILS % (AUTO) 0 % (0-1); EOSINOPHILS # (AUTO) 0.39 x10^3/uL (0-0.4); EOSINOPHILS % (AUTO) 3 % (1-7); LYMPHOCYTES # (AUTO) 1.49 x10^3/uL (1-3.4); LYMPHOCYTES % (AUTO) 11 % (22-44); MD NO; MEAN CORPUSCULAR HEMOGLOBIN 35.9 pg (27.5-34.5); MEAN CORPUSCULAR VOLUME 108.7 fL (81-97); MEAN PLATELET VOLUME 7.4 fL (7.4-10.4); MONOCYTES # (AUTO) 0.99 x10^3/uL (0.2-0.8); MONOCYTES % (AUTO) 7 % (2-9); NEUTROPHILS # (AUTO) 11.12 x10^3/uL (1.8-6.8); NEUTROPHILS % (AUTO) 79 % (42-75); PLATELET COUNT 667 x10^3/uL (130-400); RED CELL DISTRIBUTION WIDTH 19.4 % (9.4-14.8)
[2018-03-25 05:48] LABS: ALBUMIN 2.2 g/dL (3.4-5.0); ANION GAP 15 mmol/L (5-15); CALCIUM 8.8 mg/dL (8.5-10.1); CHLORIDE 99 mmol/L (98-107)
[2018-03-25 05:51] LABS: ALANINE AMINOTRANSFERASE 21 U/L (12-78); ALKALINE PHOSPHATASE 154 U/L (45-117); BILIRUBIN,TOTAL 0.5 mg/dL (0.2-1.0); CREATININE 7.43 mg/dL (0.7-1.3); TOTAL PROTEIN 6.5 g/dL (6.4-8.2)
[2018-03-25] MEDS: LEVOTHYROXINE 100 MCG TABLET PO SCH (05:52)
[2018-03-25] MEDS: MUPIROCIN OINT 2%, 22GM TP SCH (06:00)
[2018-03-25] MEDS: HYDROXYUREA 500 MG CAPSULE PO SCH (07:12)
[2018-03-25] MEDS: DOCUSATE 100 MG CAPSULE PO SCH (07:12)
[2018-03-25 07:13] VITALS: BP 124/52
[2018-03-25] MEDS: SENNA/DOCUSATE TABLET PO SCH (07:13)
[2018-03-25] MEDS: ASPIRIN 81 MG TABLET EC PO SCH (07:48)
[2018-03-25] MEDS: ALLOPURINOL 100 MG TABLET PO SCH (07:48)
[2018-03-25] MEDS: LOSARTAN 25MG TABLET PO SCH (07:48)
[2018-03-25] MEDS: GABAPENTIN 100 MG CAPSULE PO SCH (07:48)
== END 2018-03-25 15:54 | disposition hospice, home (50) | DRG 564 ==
LOC: ED 14:06 → EDIP 14:07 → 4WST 14:27
PROVIDERS: ADMIT Internal Medicine; ATTEND Internal Medicine
PROC: 5A1D70Z Performance of Urinary Filtration, Intermittent, Less than 6 Hours Per Day (ICD-10-PCS; principal; 2018-03-17)
PROC: 5A1D70Z Performance of Urinary Filtration, Intermittent, Less than 6 Hours Per Day (ICD-10-PCS; 2018-03-19)
PROC: 5A1D70Z Performance of Urinary Filtration, Intermittent, Less than 6 Hours Per Day (ICD-10-PCS; 2018-03-21)
DX: T87.81 Dehiscence of amputation stump (principal); N18.6 End stage renal disease; M86.8X6 Other osteomyelitis, lower leg; I45.2 Bifascicular block; I12.0 Hypertensive chronic kidney disease with stage 5 chronic kidney disease or end stage renal disease; E88.89 Other specified metabolic disorders; Z99.2 Dependence on renal dialysis; D53.9 Nutritional anemia, unspecified; L89.151 Pressure ulcer of sacral region, stage 1; D63.1 Anemia in chronic kidney disease; D72.829 Elevated white blood cell count, unspecified; E03.9 Hypothyroidism, unspecified; E11.22 Type 2 diabetes mellitus with diabetic chronic kidney disease; E11.51 Type 2 diabetes mellitus with diabetic peripheral angiopathy without gangrene; E11.69 Type 2 diabetes mellitus with other specified complication; E78.5 Hyperlipidemia, unspecified; B95.62 Methicillin resistant Staphylococcus aureus infection as the cause of diseases classified elsewhere; E83.41 Hypermagnesemia; D47.3 Essential (hemorrhagic) thrombocythemia; M54.5 Low back pain; G89.29 Other chronic pain; M10.9 Gout, unspecified; N25.0 Renal osteodystrophy; Y83.8 Other surgical procedures as the cause of abnormal reaction of the patient, or of later complication, without mention of misadventure at the time of the procedure; Z51.5 Encounter for palliative care; Z66 Do not resuscitate; Z79.82 Long term (current) use of aspirin; Z82.49 Family history of ischemic heart disease and other diseases of the circulatory system; Z83.3 Family history of diabetes mellitus; Z86.73 Personal history of transient ischemic attack (TIA), and cerebral infarction without residual deficits; Z87.891 Personal history of nicotine dependence; Z89.512 Acquired absence of left leg below knee; Z89.612 Acquired absence of left leg above knee; Z95.2 Presence of prosthetic heart valve; Z79.899 Other long term (current) drug therapy
CPT/HCPCS: 36415; 70450; 71045; 80048; 80053; 80069; 80202; 82040; 82306; 82607; 82962; 83605; 83735; 83880; 83970; 84100; 84443; 84484; 85025; 87040; 87070; 87077; 87186; 87205; 93005; 99285; G0378; J0696; J3370